=== PATIENT | male | born 2000 | race Caucasian/White ===

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

== ENCOUNTER 2020-03-11 10:36 | Emergency (ER) | payer OTHER ==
[~2020-03-11] VITALS: Ht 180.3 cm; Wt 74.8 kg
[2020-03-11 10:49] VITALS: TEMP 98.9
[2020-03-11 11:00] LABS: PLATELET COUNT 268 K/uL (142-355)
[2020-03-11 11:12] LABS: POTASSIUM 4.4 mmol/L (3.6-5.2); SODIUM 140 mmol/L (136-145)
[2020-03-11 11:17] LABS: PARTIAL THROMBOPLASTIN TIME 23.9 SECONDS (24.5-33.6)
[2020-03-11 11:45] VITALS: BP 1132/76
== END 2020-03-11 11:49 | disposition home or self-care (01) ==
LOC: ED 10:36
PROVIDERS: Hospitalist
DX: R07.89 Other chest pain (principal); M94.0 Chondrocostal junction syndrome [Tietze]
CPT/HCPCS: 80053; 82550; 83880; 84484; 85027; 85379; 85610; 85730; 93005; 96374; 96375; 99284; J1885; J2405

== ENCOUNTER 2020-06-14 15:54 | Emergency (ER) | payer OTHER ==
[~2020-06-14] VITALS: Ht 180.3 cm; Wt 74.8 kg
[2020-06-14 16:40] VITALS: BP 131/75; TEMP 99.2
== END 2020-06-14 16:40 | disposition home or self-care (01) ==
LOC: ED 15:54
DX: L70.0 Acne vulgaris (principal)
CPT/HCPCS: 99281; J0696; J1885